=== PATIENT | male | born 1980 | race Caucasian/White ===

== ENCOUNTER 2016-12-22 08:20 | Emergency (ER) | payer MEDICAID ==
[~2016-12-22] VITALS: Ht 165.1 cm; Wt 84.0 kg
[2016-12-22 08:24] VITALS: Ht 165.1 cm; Wt 84.0 kg
[2016-12-22] MEDS ORDERED: ONDANSETRON (ODT) 4 MG TAB ODT STA (08:47)
[2016-12-22] MEDS ORDERED: ONDA4TAB8 PO (08:59)
--- NOTE | 2016-12-22 09:06 | ERD ---
ER Documentation Chief Complaint Date/Time DATE: 12/22/16 TIME: 09:03 Chief Complaint Complains of nausea and vomiting x 2 days HPI This a 36-year-old male who presents to the emergency department today complaining of some nausea that started yesterday after eating pizza. States he feels that he wants to vomit. Patient states he feels chilled. States he is unsure if he has a fever. States he wants to get a physical. Denies any dizziness, blurred vision, chest pain, abdominal pain ROS All systems reviewed and are negative except as per history of present illness. Medications Home Meds Active Scripts Ondansetron Hcl* (Zofran*) 4 Mg Tablet, 4 MG PO Q6H for NAUSEA AND/OR VOMITING, #30 TAB Prov:ABIGAIL ACUÑA PA-C 12/22/16 Allergies Allergies: Coded Allergies: No Known Allergy (Unverified , 12/22/16) PMhx/Soc Medical and Surgical Hx: pt denies Medical Hx, pt denies Surgical Hx History of Surgery: No Anesthesia Reaction: No Hx Neurological Disorder: No Hx Respiratory Disorders: No Hx Cardiac Disorders: No Hx Psychiatric Problems: No Hx Miscellaneous Medical Probl: No Hx Alcohol Use: Yes Hx Substance Use: No Hx Tobacco Use: No Smoking Status: Never smoker Physical Exam Vitals Vital Signs Date Time Temp Pulse Resp B/P Pulse Ox O2 Delivery O2 Flow Rate FiO2 12/22/16 08:24 98.7 85 20 145/80 98 Physical Exam Const: No acute distress Head: Atraumatic Eyes: Normal Conjunctiva ENT: Normal External Ears, Nose and Mouth. Neck: Full range of motion..~ No meningismus. Resp: Clear to auscultation bilaterally Cardio: Regular rate and rhythm, no murmurs Abd: Soft, non tender, non distended. Normal bowel sounds Skin: No petechiae or rashes Neur: Awake and alert Psych: Normal Mood and Affect Results 24 hrs Current Medications Medications (Trade) Dose Ordered Sig/Kumar Route PRN Reason Start Time Stop Time Status Last Admin Dose Admin Ondansetron HCl (Zofran Odt) 4 mg ONCE STAT ODT 12/22/16 08:47 12/22/16 08:49 DC Procedures/MDM This a 36-year-old male presents to the emergency department today complaining of nausea that started yesterday. Patient has not had any vomiting. Is not actively vomiting. He denies any abdominal pain or chest pain. Do not feel the patient requires further workup at this time. He is afebrile and otherwise well-appearing. His vital signs are stable. Low suspicion for acute surgical abdomen, acute chest pain Patient symptoms at this time is consistent with nausea. I gave the patient Zofran here in the emergency department. He is not actively vomiting. Patient will given a per scription for Zofran for home. Patient was concerned about whether he was contagious or not as he has a baby at home. I have explained to him that he should not be sharing utensils or glasses with anybody. Patient understood. At this time the patient is stable for discharge and outpatient management. Patient should follow up with their PCP in the next 1-2 days. They may return to the emergency department sooner for any persistent or worsening of symptoms. Patient understood and agreed with the plan. Departure Diagnosis: Primary Impression: Nausea Condition: Fair Patient Instructions: Nausea [facility] Usted se merida hecho un examen mdico de control que le indica que no est en fernando condicin que requiera tratamiento urgente en el Departamento de Emergencia. Un estudio ms profundo y el tratamiento de may condicin pueden esperar sin ningn riesgo hasta que usted sea atendida/o en el consultorio de may mdico o fernando cl christine. Es responsabilidad suya arreglar fernando mariann para el seguimiento del elizabeth. MANEJO DE CONDICIONES NO URGENTES EN EL FUTURO 1) Si usted tiene un mdico de atencin primaria: Usted debera llamar a may mdico de atencin primaria antes de venir al departamento de emergencia. Despus de las horas de consultorio, may doctor o may asociado/a est disponible por telfono. El mdico o enfermero de emilee en el servicio telefnico puede asesorarle por german medio para atender el problema, o elizabeth contrario se puede programar fernando mariann. 2) Si usted no tiene un mdico de atencin primaria: Llame al mdico o clnica de referencia que aparece abajo nhung las horas de consultorio para hacer fernando mariann para que le vean. CLINICAS: [facility] [id number] [facility] [phone] [facility] [phone] [place] [phone] [place] [address] [phone] [facility] [phone] [address] Additional Instructions: Llame al doctor MAANA y armais fernando MARIANN PARA DENTRO DE 1-2 PHILIP.Dgale a la secretaria que nosotros le instruimos hacer esta mariann.Avise o llame si may condicin se empeora antes de la mariann. Regresa aqui si peor o no mejor. Take Zofran for nausea or vomiting ABIGAIL ACUÑA PA-C Dec 22, 2016 09:06
== END 2016-12-22 09:02 | disposition home or self-care (01) ==
LOC: FTE 08:20
DX: R11.0 Nausea (principal)
CPT/HCPCS: 99283

== ENCOUNTER 2017-06-03 21:06 | Emergency (ER) | payer MEDICAID ==
[~2017-06-03] VITALS: Ht 165.1 cm; Wt 73.0 kg
[~2017-06-03 21:06] MED LIST: ONDA4TAB8 PO
[2017-06-03 21:08] VITALS: Ht 165.1 cm; Wt 73.0 kg
[2017-06-03] MEDS ORDERED: TYL500 PO (22:47)
[2017-06-03] MEDS ORDERED: FLUT9.9S NASAL (22:48)
[2017-06-03] MEDS ORDERED: PHEN30SP8 MM (22:48)
--- NOTE | 2017-06-03 22:59 | ERD ---
ER Documentation Chief Complaint Chief Complaint c/o sore throat x 3 days. HPI This is a 37-year-old male presents to the ER with a sore throat for the last 3 days. Patient states that his throat feels very dry and that he experiences pain at night. He also has a stuffy nose. He denies any fevers or chills. He denies any difficulty in swallowing. Patient denies any smoking or drinking. ROS 12 point review of systems was done, all negative except per HPI. Medications Home Meds Active Scripts Phenol/Glycerin (Chloraseptic Max Concord) 30 Ml [place], 1 SPRAY MM Q2H Y for throat pain, #1 BOTTLE Prov:VANCE MOORE 06/03/17 Fluticasone Propionate (Flonase Allergy Relief) 9.9 Ml Concord.susp, 1 SPRAY NASAL BID, #1 BOTTLE TO EACH NOSTRIL Prov:VANCE MOORE 06/03/17 Acetaminophen* (Tylenol*) 500 Mg Tab, 1000 MG PO Q8H Y for PAIN AND OR ELEVATED TEMP for 3 Days, TAB Prov:VANCE MOORE 06/03/17 Ondansetron Hcl* (Zofran*) 4 Mg Tablet, 4 MG PO Q6H for NAUSEA AND/OR VOMITING, #30 TAB Prov:ABIGAIL ACUÑA PA-C 12/22/16 Allergies Allergies: Coded Allergies: No Known Allergy (Unverified , 12/22/16) PMhx/Soc Medical and Surgical Hx: pt denies Medical Hx, pt denies Surgical Hx History of Surgery: No Anesthesia Reaction: No Hx Neurological Disorder: No Hx Respiratory Disorders: No Hx Cardiac Disorders: No Hx Psychiatric Problems: No Hx Miscellaneous Medical Probl: No Hx Alcohol Use: No Hx Substance Use: No Hx Tobacco Use: No Smoking Status: Never smoker Physical Exam Vitals Vital Signs Date Time Temp Pulse Resp B/P Pulse Ox O2 Delivery O2 Flow Rate FiO2 06/03/17 21:08 98.4 103 18 140/71 97 Physical Exam GENERAL: The patient is well-developed, well-nourished, in no acute distress. NECK: Cervical spine is non tender with no step off. Supple, no nuchal rigidity HEENT: Atraumatic. Pupils equal, round and reactive to light. Extraocular muscles are grossly intact. Conjunctivae pink, no discharge. Bilateral tympanic membranes are clear with no evidence of erythema, effusion or dulling of the light reflex. Tonsilar erythema with no exudates or uvular deviation. Clear rhinorrhea. RESPIRATORY: Clear to auscultation bilaterally. There are no rales, wheezes or rhonchi. HEART: Regular rate and rhythm. No murmurs, clicks, rubs or gallops. EXTREMITIES: No clubbing or cyanosis. Full range of motion. Grossly neurovascularly intact. NEUROLOGIC: Alert and oriented. Cranial nerves II through XII are intact. SKIN: There is no rash. The skin is warm and dry. Procedures/MDM Differential diagnosis includes but is not limited to; Viral URI, allergic rhinitis, bronchitis, pertussis,pneumonia. This is likely viral in etiology. Patient is negative for strep. I doubt retropharyngeal abscess or peritonsillar abscess. He does not have any uvular deviation or kissing tonsils. Clinical suspicion for pneumonia is low as patient appears well, is not hypoxic or in any respiratory distress. Additionally, patients physical examination is benign. Plan was discussed with patient they understand and agree. Patient needs to follow up with PCP in 1-2 days or return to ER sooner if symptoms worsen. Departure Diagnosis: Primary Impression: Pharyngitis Condition: Stable Patient Instructions: Pharyngitis, Viral Additional Instructions: Call your primary care doctor TOMORROW for an appointment during the next 1-2 days.See the doctor sooner or return here if your condition worsens before your appointment time. VANCE MOORE Jun 03, 2017 22:59
== END 2017-06-03 23:06 | disposition home or self-care (01) ==
LOC: FTE 21:06
DX: J02.9 Acute pharyngitis, unspecified (principal)
CPT/HCPCS: 87880; Z7502; 99283